=== PATIENT | female | born 1955 | race Caucasian/White ===

== ENCOUNTER 2021-05-23 19:37 | Emergency (ER) | payer MEDICARE, OTHER ==
[~2021-05-23] VITALS: Ht 167.6 cm; Wt 104.3 kg
--- NOTE | 2021-05-23 20:10 | NUR ---
PT AAOX4. BIBSELF C/O RLQ PAIN RADIATING TO R FLANK X1 DAY. PLACED IN BED 2 ON MONITOR AND PULSE OX. AWAITING ER MD FOR EVAL AND ORDERS.
[2021-05-23 21:07] LABS: BILIRUBIN,URINE Negative (NEGATIVE); COLOR,URINE YELLOW (YELLOW); LEUKOCYTE ESTERASE ,URINE Negative (NEGATIVE); NITRITE, URINE Negative (NEGATIVE); PH,URINE 5.5 (5.0-8.0); PROTEIN,URINE 30 mg/dl (NEGATIVE); UGLUCOSE Negative (NEGATIVE); UROBILINOGEN,URINE 0.2 EU/dL (0.2)
[2021-05-23] MEDS ORDERED: KETOROLAC TROMETHAMINE 15 MG/ML VIAL ONE (21:15)
[2021-05-23 21:20] LABS: RBC,URINE 0-2 /HPF (0-2)
[2021-05-23 21:21] LABS: BACTERIA,URINE Few /HPF (None Seen); SQUAMOUS EPITHELIAL CELL,UR Few /HPF (None Seen); WBC,URINE 0-2 /HPF (0-3)
[2021-05-23] MEDS ORDERED: KETOROLAC TROMETHAMINE INJ 30 MG/ML VIAL IV ONE (21:30)
[2021-05-23] MEDS ORDERED: IV NS 0.9% 500 ML BAG IV ONE (21:30)
[2021-05-23 21:37] LABS: BASOPHILS # (AUTO) 0.2 K/uL (0.0-0.2); BASOPHILS % (AUTO) 3.2 % (0.0-2.0); EOSINOPHILS % (AUTO) 2.6 % (0.0-6.0); HEMATOCRIT 38 % (33-45); HEMOGLOBIN 12.8 g/dL (11.5-14.8); LYMPHOCYTES # (AUTO) 1.8 K/uL (0.8-4.8); LYMPHOCYTES % (AUTO) 26.4 % (20.0-44.0); MEAN CORPUSCULAR HGB CONC 33 g/dl (31.0-36.0); MEAN CORPUSCULAR VOLUME 84 fL (82-100); MONOCYTES # (AUTO) 0.4 K/uL (0.1-1.30); MONOCYTES % (AUTO) 5.3 % (2.0-12.0); NEUTROPHILS # (AUTO) 4.3 K/uL (1.8-8.9); NEUTROPHILS % (AUTO) 62.5 % (43.0-81.0); PLATELET COUNT (AUTO) 143 K/uL (150-450); RED BLOOD CELL COUNT(AUTO) 4.57 MIL/uL (4.0-5.2)
[2021-05-23 21:49] LABS: CREATININE 0.8 mg/dL (0.6-1.3); POTASSIUM 3.7 mmol/L (3.5-5.1)
[2021-05-23] MEDS ORDERED: ONDANSETRON HCL/PF 4 MG/2 ML VIAL ONE (21:52)
[2021-05-23 21:54] LABS: ALBUMIN 4.1 g/dL (3.4-5.0); BILIRUBIN,DIRECT 0.1 mg/dL (0.0-0.2); BILIRUBIN,TOTAL 0.3 mg/dL (0.2-1.0); TOTAL PROTEIN, SERUM 7.7 g/dL (6.4-8.2)
[2021-05-23] MEDS ORDERED: ONDANSETRON HCL/PF 4 MG/2 ML VIAL IV ONE (22:00)
[2021-05-23] MEDS ORDERED: IOHEXOL-300 100 ML VIAL IV ONE (22:17)
[2021-05-23] MEDS ORDERED: IV NS 0.9% 250 ML IV ONE (22:17)
--- NOTE | 2021-05-23 23:42 | NUR ---
Patient discharged to home in stable condition. Written and verbal after care instructions given. Patient verbalizes understanding of instruction.
[2021-05-23 23:43] VITALS: BP 145/70
== END 2021-05-23 23:47 | disposition home or self-care (01) ==
LOC: ER 19:43
DX: K76.0 Fatty (change of) liver, not elsewhere classified (principal); R10.11 Right upper quadrant pain; I10 Essential (primary) hypertension; E78.5 Hyperlipidemia, unspecified; E03.9 Hypothyroidism, unspecified; J45.909 Unspecified asthma, uncomplicated; E78.00 Pure hypercholesterolemia, unspecified
CPT/HCPCS: 36415; 71045; 74177; 76705; 80048; 80076; 81001; 83690; 85025; 87086; 96374; 99285; J1885; J2405; J7040; J7050; Q9967

== ENCOUNTER 2021-10-01 19:40 | Emergency (ER) | payer MEDICARE, OTHER ==
[~2021-10-01] VITALS: Ht 167.6 cm; Wt 99.3 kg
[2021-10-01 20:00] VITALS: BP 146/108
--- NOTE | 2021-10-01 20:00 | NUR ---
PT BIBSELF FOR WOUND CHECK OF LOWER ABD PAIN, S/P UTERUS SURGERY 2 MONTHS AGO SCANT BLEEDING NOTED. PT A/OX4 TOLERATING R/A WELL WITH NO SOB
== END 2021-10-01 20:48 | disposition home or self-care (01) ==
LOC: ER 19:54
DX: T81.31XA Disruption of external operation (surgical) wound, not elsewhere classified, initial encounter (principal); I10 Essential (primary) hypertension; E78.00 Pure hypercholesterolemia, unspecified; J45.909 Unspecified asthma, uncomplicated

== ENCOUNTER 2023-07-10 11:43 | Emergency (ER) | payer MEDICARE, OTHER ==
[~2023-07-10] VITALS: Ht 167.6 cm; Wt 67.1 kg
[2023-07-10 12:11] VITALS: TEMP 98.7
[2023-07-10] MEDS ORDERED: ALBUTEROL FS 2.5 MG/0.5 ML VIAL.NEB NEB ONE (13:00)
[2023-07-10] MEDS ORDERED: ACETAMINOPHEN ES 500 MG TABLET PO ONE (13:00)
[2023-07-10] MEDS ORDERED: ALBUTEROL FS 2.5 MG/0.5 ML VIAL.NEB ONE (13:07)
[2023-07-10 13:12] VITALS: O2SAT 98
[2023-07-10] MEDS ORDERED: ACETAMINOPHEN ES 500 MG TABLET ONE (13:20)
[2023-07-10 13:24] VITALS: O2SAT 99
[2023-07-10] MEDS ORDERED: IBUP-1955 PO (14:49)
[2023-07-10 14:56] VITALS: BP 136/84; O2SAT 99
== END 2023-07-10 14:59 | disposition home or self-care (01) ==
LOC: ER 11:43
DX: J06.9 Acute upper respiratory infection, unspecified (principal); J45.909 Unspecified asthma, uncomplicated; I10 Essential (primary) hypertension; E78.00 Pure hypercholesterolemia, unspecified; Z20.822 Contact with and (suspected) exposure to COVID-19
CPT/HCPCS: 71045-TC

== ENCOUNTER 2024-01-12 10:55 | Emergency (ER) | payer MEDICARE, OTHER ==
[~2024-01-12] VITALS: Ht 167.6 cm; Wt 101.2 kg
[~2024-01-12 10:55] MED LIST: IBUP-1955 PO
[2024-01-12] MEDS ORDERED: TRAMADOL HCL 50 MG TABLET ONE (12:02)
[2024-01-12] MEDS ORDERED: IBUPROFEN 600 MG TABLET ONE (12:03)
[2024-01-12] MEDS: TRAMADOL HCL 50 MG TABLET PO ONE (12:06)
[2024-01-12] MEDS: IBUPROFEN 600 MG TABLET PO ONE (12:06)
[2024-01-12] MEDS ORDERED: HYDR-4209 PO (13:27)
[2024-01-12] MEDS ORDERED: KETO10TA2 PO (13:27)
[2024-01-12 13:38] VITALS: BP 132/78; TEMP 97.9; O2SAT 100
== END 2024-01-12 13:39 | disposition home or self-care (01) ==
LOC: ER 10:56
DX: S13.8XXA Sprain of joints and ligaments of other parts of neck, initial encounter (principal); S63.592A Other specified sprain of left wrist, initial encounter; S06.0X0A Concussion without loss of consciousness, initial encounter; I10 Essential (primary) hypertension; E78.00 Pure hypercholesterolemia, unspecified; J45.909 Unspecified asthma, uncomplicated; Z79.1 Long term (current) use of non-steroidal anti-inflammatories (NSAID); Z79.891 Long term (current) use of opiate analgesic; Z79.899 Other long term (current) drug therapy; W18.39XA Other fall on same level, initial encounter; Y93.89 Activity, other specified; Y92.89 Other specified places as the place of occurrence of the external cause; Y99.8 Other external cause status
CPT/HCPCS: 70450-TC; 72125-TC; 73110